=== PATIENT | female | born 1990 | race Caucasian/White ===

== ENCOUNTER → 2021-11-14 | Outpatient (CLI) | payer OTHER ==
[2021-11-14 17:31] LABS: Basophils # (A) 0.05 X 10*3/uL (0.00-0.10); Basophils % (A) 0.5 %; Eosinophils # (A) 0.09 X 10*3/uL (0.04-0.35); Eosinophils % (A) 0.9 %; HCT 40.5 % (37.2-46.3); HGB 13.1 g/dL (12.0-15.0); Immature Grans, Automated 0.3 %; Lymphocytes # (A) 2.34 X 10*3/uL (0.90-5.00); Lymphocytes % (A) 23.9 %; MCH 30.3 pg (27.0-32.0); MCHC 32.3 g/dL (32.0-37.0); MCV 93.8 fL (80.0-97.0); Mean Platelet Volume 11.2 fL (9.5-12.2); Monocytes # (A) 0.69 X 10*3/uL (0.20-1.00); NRBC Per 100 WBC 0 /100 WBCS (0.0-0.0); Neutrophils # (A) 6.59 X 10*3/uL (1.80-7.70); Neutrophils % (A) 67.4 %; Platelet Count 219 X 10*3/uL (140-440); RBC 4.32 X 10*6/uL (4.10-5.20); RDW 12.2 % (11.5-14.5); WBC 9.79 X 10*3/uL (4.50-10.00)
[2021-11-14 17:51] LABS: ALT 12 U/L (8-44); AST 18 U/L (13-35); African American GFR (CKD) 136.3 (60.0-200.0); Albumin 4.4 g/dL (3.8-4.9); Albumin/Globulin Ratio 1.77 (1.60-3.17); Alkaline Phosphatase 56 U/L (41-126); BUN/Creat Ratio 9.88 Ratio (12.00-20.00); Blood Urea Nitrogen 6.5 mg/dL (9.0-27.0); Calcium 9.1 mg/dL (8.7-10.3); Chloride 103 mmol/L (96-109); Globulin 2.5 g/dL (1.6-3.3); Glucose 101 mg/dL (70-110); HCG,Quantitative Serum <3.0 (0.0-6.0); Non-African American GFR(CKD) 117.6 (60.0-200.0); Potassium 3.7 mmol/L (3.5-5.5); Sodium 138 mmol/L (135-145); Total Bilirubin <0.15 mg/dL (0.30-1.20); Total Protein 6.9 g/dL (6.2-8.2)
[2021-11-14 20:22] LABS: Cancer Antigen 125 8.2 U/mL (0.0-30.1)
== END | disposition home or self-care (01) ==
LOC: LABWHC1 12:07
PROVIDERS: ATTEND Obstetrics & Gynecology Gynecologic Oncology
DX: O01.9 Hydatidiform mole, unspecified (principal); Z3A.00 Weeks of gestation of pregnancy not specified
CPT/HCPCS: 36415; 80053; 82378; 84702; 85025; 86304

== ENCOUNTER → 2023-11-26 | Outpatient (CLI) | payer BC ==
[2023-11-26 15:53] LABS: ALT 10 U/L (8-44); AST 17 U/L (13-35); Blood Urea Nitrogen 12.1 mg/dL (9.0-27.0); Estradiol 37.5 pg/mL; Glucose 93 mg/dL (70-110); HCG,Quantitative Serum <3.0 mIU/mL (0.0-6.0); T4, Free (Free Thyroxine) 1.34 ng/dL (0.80-1.80)
[2023-11-26 16:15] LABS: Follicle Stimulating Hormone 9.3 mIU/mL
[2023-11-26 21:11] LABS: Thyroid Peroxidase Antibodies 11.1 U/mL (0.0-33.0)
[2023-11-26 21:25] LABS: Insulin Level 11.1 mIU/mL (3.0-25.0)
== END | disposition home or self-care (01) ==
LOC: LABWHC1 07:25
PROVIDERS: ATTEND Obstetrics & Gynecology Reproductive Endocrinology
DX: Z31.49 Encounter for other procreative investigation and testing (principal)
CPT/HCPCS: 36415; 82306; 82397; 82565; 82670; 82947; 83001; 83036; 83525; 84146; 84402; 84403; 84439; 84443; 84450; 84460; 84481; 84520; 84702; 86376; 86762; 86787; 86800; 86850; 86870; 86880; 86900; 86901

== ENCOUNTER → 2024-07-24 | Outpatient (CLI) | payer BC ==
--- NOTE | 2024-07-24 09:32 | USB ---
Reason for Exam: Clinical finding. Patient History: Menarche at age 15. First Full-Term at age 22. Technique: Method: Targeted. Findings: The area of palpable concern of the left breast was scanned. Technique utilized:US breast limited LT Image; Ultrasound imaging of: Area of concern, retroareolar region and axilla. No evidence for organizing fluid collection or mass. Overall Assessment: Negative, BI-RAD 1 Management: Screening Mammogram of both breasts at age 40. Clinical management for A clinical breast exam by your physician is recommended on an annual basis and results should be correlated with mammographic findings. This exam should not preclude additional follow-up of suspicious palpable abnormalities. Results were given to the patient verbally at the time of exam. [facility], , 07/24/2024 9:30 AM. Electronically signed and approved by: Evens De Jesus DO
--- NOTE | 2024-07-28 12:31 | MM ---
Reason for Exam: Clinical finding. Baseline mammogram. Indicated Problems: Lump or thickening of the left side (size 5) for 2 Month(s). Patient History: Menarche at age 15. First Full-Term at age 22. Currently . Last menstrual period: 07/09/2024 Prior Study Comparison: Patient's first Mammogram. Tissue Density: The breasts are heterogeneously dense, which may obscure small masses. Findings: Analyzed By CAD. There may be asymmetries in the area of palpable abnormality 5.9 cm on MLO view superiorly and superiorly on LM view 8 m from the nipple ordering 7 mm. Overall Assessment: Incomplete: need additional imaging evaluation, BI-RAD 0 Management: Diagnostic Breast Ultrasound of the left breast. Results were given to the patient verbally at the time of exam. Patient should continue monthly self-breast exams. A clinical breast exam by your physician is recommended on an annual basis. This exam should not preclude additional follow-up of suspicious palpable abnormalities. Note on Susie scores and lifetime risk: 1. A Susie score greater than 3% is considered moderate risk. If this is the case, consider specialist referral to assess eligibility for a risk reducing agent. 2. If overall lifetime risk for the development of breast cancer is 20% or higher, the patient may qualify for future screening with alternating mammogram and breast MRI. [facility], , 07/24/2024 8:46 AM. Electronically signed and approved by: Evens De Jesus DO
== END | disposition home or self-care (01) ==
LOC: RADUSWWP 08:06
PROVIDERS: ATTEND Family Medicine
DX: R92.333 Mammographic heterogeneous density, bilateral breasts (principal); N60.02 Solitary cyst of left breast
CPT/HCPCS: 77062; 77066

== ENCOUNTER → 2024-07-24 | Outpatient (CLI) | payer BC | END | disposition home or self-care (01) | LOC: RADMAMWWP 08:05 | PROVIDERS: ATTEND Family Medicine | DX: Z53.9 Procedure and treatment not carried out, unspecified reason (principal) ==